=== PATIENT | female | born 1970 | race Caucasian/White ===

== ENCOUNTER 2018-04-07 15:35 | Emergency (ER) | payer BC, OTHER ==
[2018-04-07 15:46] VITALS: O2SAT 98
--- NOTE | 2018-04-07 15:58 | ERPHSYRPT ---
- History of Present Illness Time Seen by Provider: 04/07/18 15:53 Source: patient Exam Limitations: no limitations Patient Subjective Stated Complaint: Left Wrist Pain after Falling approximately an hour ago. Triage Nursing Assessment: Pt presents to the ED with complaints of left wrist pain after fallin. Pt states this occurred approximately an hour ago. Pt states she has not taken anything for the pain since incident. Pt has swelling noted to left wrist, no distress noted, skin PWD. Physician History: patient presents with left wrist pain that occurred approximately 1 hour prior to arrival. Patient was pulling on tree limb, when she fell putting her right hand/wrist to catch herself on the ground. Patient noted left wrist swelling, pain along with decrease range of motion. Patient denies any numbness, tingling or weakness to distal fingers. Patient denies any left elbow or shoulder pain. Patient had not taken any meds for discomfort Occurred: just prior to arrival Method of Injury: direct blow, fell Quality: constant, aching Severity of Pain-Max: moderate Severity of Pain-Current: moderate Extremities Pain Location: wrist: left Modifying Factors: Improves With: immobilization (improves), movement (worsens) Associated Symptoms: No chest discomfort, No chest pain Allergies/Adverse Reactions: No Known Drug Allergies Allergy (Unverified 04/07/18 15:48) Home Medications: Ergocalciferol (Vitamin D2) [Vitamin D] 50,000 unit PO DAILY 04/07/18 [History] Ibuprofen [IBUPROFEN 400 MG TABLET] 2 tablet PO TID PRN 04/07/18 [History] Hx Tetanus, Diphtheria Vaccination/Date Given: No Hx Influenza Vaccination/Date Given: No Hx Pneumococcal Vaccination/Date Given: No Immunizations Up to Date: No - Review of Systems Constitutional: No Fever, No Chills Eyes: No Symptoms Ears, Nose, & Throat: No Symptoms Respiratory: No Symptoms, No Cough, No Dyspnea Cardiac: No Symptoms, No Chest Pain, No Edema, No Syncope Abdominal/Gastrointestinal: No Symptoms, No Abdominal Pain, No Nausea, No Vomiting, No Diarrhea Genitourinary Symptoms: No Symptoms, No Dysuria Musculoskeletal: Fall, Injury, Other (left wrist swelling/pain), No Back Pain, No Neck Pain Skin: No Symptoms, No Rash Neurological: No Symptoms, No Dizziness, No Focal Weakness, No Sensory Changes Psychological: No Symptoms Endocrine: No Symptoms All Other Systems: Reviewed and Negative - Past Medical History Pertinent Past Medical History: No Neurological History: No Pertinent History ENT History: No Pertinent History Cardiac History: No Pertinent History Respiratory History: No Pertinent History Endocrine Medical History: No Pertinent History Musculoskeletal History: Arthritis, Fibromyalgia, Rheumatoid Arthritis GI Medical History: No Pertinent History History: No Pertinent History Psycho-Social History: No Pertinent History Female Reproductive Disorders: No Pertinent History - Past Surgical History Past Surgical History: Yes Neuro Surgical History: No Pertinent History Cardiac: No Pertinent History Respiratory: No Pertinent History Gastrointestinal: Appendectomy Genitourinary: No Pertinent History Musculoskeletal: No Pertinent History Female Surgical History: No Pertinent History - Social History Smoking Status: Current every day smoker How long have you smoked: 26 years Exposure to second hand smoke: Yes Drug Use: none Patient Lives Alone: No - Female History Hx Now: No - Nursing Vital Signs Nursing Vital Signs: Initial Vital Signs Temperature 98.0 F 04/07/18 15:42 Pulse Rate 91 H 04/07/18 15:42 Respiratory Rate 18 04/07/18 15:42 Blood Pressure 130/81 04/07/18 15:42 O2 Sat by Pulse Oximetry 98 04/07/18 15:42 Pain Scale Pain Intensity 6 - Physical Exam General Appearance: alert Eyes, Ears, Nose, Throat Exam: moist mucous membranes Neck Exam: non-tender, supple Cardiovascular/Respiratory Exam: chest non-tender, normal breath sounds, regular rate/rhythm, no respiratory distress Abdominal Exam: non-tender, No guarding Back Exam: normal inspection, No vertebral tenderness Shoulder Exam: normal inspection, non-tender Elbow/Forearm Exam: normal inspection, non-tender (6) Wrist Exam: limited ROM (due to pain), soft tissue tenderness (at wrist joint dorsally) Hand Exam: normal inspection, non-tender, no evidence of injury Neuro/Tendon Exam: normal sensation, normal motor functions Mental Status Exam: alert, oriented x 3, cooperative Skin Exam: normal color, warm, dry SpO2: 98 Oxygen Delivery: Room Air - Course Nursing assessment & vital signs reviewed: Yes - Radiology Exams Left Wrist X-ray Interpretation: Teleradiologist Report, Non-displaced Fracture (L distal radius) Ordered Tests: Active Orders 24 hr Category Date Time Status WRIST (MIN 3 VIEWS) Stat Exams 04/07/18 15:50 Completed Medication Summary Discontinued Medications Generic Name Dose Route Start Last Admin Trade Name Freq PRN Reason Stop Dose Admin Ketorolac Tromethamine 60 mg 04/07/18 15:53 04/07/18 16:11 Toradol 30 Mg Injection IM 04/07/18 15:54 60 mg STAT ONE Administration Ketorolac Tromethamine Confirm 04/07/18 16:09 Toradol 30 Mg Injection Administered 04/07/18 16:10 Dose 60 mg .ROUTE .STK-MED ONE - Progress Progress: improved Progress Note: 04/07/18 15:58 will get a left wrist x-ray to rule out any fractures. We'll also give patient Toradol for discomfort 04/07/18 16:53 states she felt somewhat better after Toradol injection Counseled pt/family regarding: diagnosis, rad results - Departure Time of Disposition: 16:53 Departure Disposition: Home Clinical Impression: Fracture of left distal radius Condition: Stable Critical Care Time: No Referrals: MILAN LOUISE [Primary Care Provider] - KAM WALLACE [ACTIVE STAFF] - Instructions: Wrist Fracture Additional Instructions: Rx: Custer 5, #12. Ice, elevate along with Motrin 800 mg every 8 hours with food for pain/ swelling. Follow-up with Dr. Wallace in 1-2 days. Wear sling and splint until seen by orthopedic surgeon. Return for worse swelling, pain, numbness, weakness or any problems Forms: Work/School Release Form Prescriptions: Hydrocodone Bit/Acetaminophen [Custer 5-325 Tablet] 1 each PO Q6H PRN PRN #12 tablet MDD 6 tabs PRN Reason: Pain
[2018-04-07] MEDS ORDERED: TORAdol 30 mg Injection ONE (16:09)
[2018-04-07] MEDS: TORAdol 30 mg Injection IM ONE (16:11)
--- NOTE | 2018-04-07 16:32 | XRAY ---
Indication: Pain following injury. Comparison: None 3 views of the left wrist demonstrates nondisplaced vertical fracture involving the distal radius with intra-articular extension. No other bone, articular, or soft tissue abnormalities.
[2018-04-07 17:08] VITALS: BP 106/70; PULSE 96
== END 2018-04-07 17:08 | disposition home or self-care (01) ==
LOC: ED 15:35
DX: S52.502A Unspecified fracture of the lower end of left radius, initial encounter for closed fracture (principal); W01.0XXA Fall on same level from slipping, tripping and stumbling without subsequent striking against object, initial encounter
CPT/HCPCS: 73110; 96372; 99283; J1885

== ENCOUNTER 2019-11-14 00:38 | Emergency (ER) | payer BC | END 2019-11-14 13:00 | disposition left against medical advice (07) | LOC: ED 00:38 | DX: Z53.9 Procedure and treatment not carried out, unspecified reason (principal) ==